=== PATIENT | male | born 2000 | race Caucasian/White ===

== ENCOUNTER 2023-12-07 22:23 | Emergency (ER) | payer MEDICAID ==
[~2023-12-07] VITALS: Ht 170.2 cm; Wt 75.0 kg
[2023-12-07 22:55] VITALS: BP 119/59; PULSE 76; RESP 18; TEMP 98.6; O2SAT 99
[2023-12-07 23:52] LABS: CHLORIDE 108 mEq/L (98-107); POTASSIUM 4.2 mEq/L (3.5-5.1); SODIUM 142 mEq/L (136-145)
[2023-12-07 23:53] LABS: CARBON DIOXIDE 26 mEq/L (21-32)
[2023-12-07 23:58] LABS: GLUCOSE 100 mg/dL (70-105); UREA NITROGEN BLOOD 11 mg/dL (9-23)
[2023-12-08 00:27] LABS: BASOPHILS % 0.4 % (0.0-2.0); EOSINOPHILS % 2.4 % (0.0-5.0); HEMATOCRIT. 47.2 % (42.0-52.0); HEMOGLOBIN. 17.1 g/dL (14.0-18.0); LYMPHOCYTES % 12.8 % (20.0-50.0); MEAN CORPUSCULAR HEMOGLOBIN 32.8 pg (28.0-32.0); MEAN CORPUSCULAR HGB CONC 36.1 g/dL (31.0-37.0); MEAN CORPUSCULAR VOLUME 90.9 fL (80.0-94.0); MEAN PLATELET VOLUME 7.7 fl (7.4-10.4); MONOCYTES % 12.2 % (2.0-8.0); NEUTROPHILS % 72.2 % (40.0-76.0); PLATELET 229 x1000/uL (130-400); RED BLOOD CELL COUNT 5.19 mill/uL (4.7-6.1); RED CELL DISTRIBUTION WIDTH 13.3 % (11.6-14.6); WHITE BLOOD COUNT 9.4 x1000/uL (4.5-11.0)
[2023-12-08 00:28] LABS: DIFFERENTIAL COMMENT 1
[2023-12-08 00:40] LABS: CLARITY URINE CLEAR (CLEAR); COLOR URINE DARK YELLOW (YELLOW); GLUCOSE URINE NEGATIVE (NEGATIVE); KETONES URINE NEGATIVE (NEGATIVE); LEUKOCYTE ESTERASE URINE TRACE (NEGATIVE); NITRITE URINE NEGATIVE (NEGATIVE); OCCULT BLOOD URINE NEGATIVE (NEGATIVE); PH URINE 6.5 (4.5-8.0); PROTEIN URINE 1+ (NEGATIVE); SPECIFIC GRAVITY URINE 1.027 (1.005-1.030)
[2023-12-08 00:56] LABS: BACTERIA URINE 1+; RBC URINE 0-2 /hpf (0-2); SQUAMOUS EPITHELIAL CELL URINE 1+ /lpf (RARE/1+); WBC URINE 0-2 /hpf (0-2)
[2023-12-08 00:57] LABS: MUCUS URINE 4+ /lpf (NONE/TRACE)
[2023-12-08] MEDS: FAMOTIDINE 20MG TABLET PO ONE (02:15)
[2023-12-08] MEDS: DICYCLOMINE 10 MG/5 ML ORAL SYR PO ONE (02:15)
[2023-12-08] MEDS: MAGNESIUM/ALUMINUM HYDROXIDE/SIMETHICONE 30ML UDC PO ONE (02:15)
[2023-12-08] MEDS ORDERED: MAG-55 MT (02:16)
== END 2023-12-08 03:23 | disposition home or self-care (01) ==
LOC: ER 22:23
DX: K29.70 Gastritis, unspecified, without bleeding (principal); R19.7 Diarrhea, unspecified; F17.210 Nicotine dependence, cigarettes, uncomplicated
CPT/HCPCS: 36415; 80048; 81003; 85025; 99284; 99406